=== PATIENT | male | born 1940 | race Caucasian/White ===

== ENCOUNTER 2017-01-05 09:00 | Observation (INO) | payer OTHER ==
--- NOTE | 2017-01-05 09:15 | CPEKG ---
Heart Rate: 63 RR Interval: 952 P-R Interval: 216 QRSD Interval: 148 QT Interval: 412 QTC Interval: 422 P [place]: 28 QRS [place]: -70 T Wave [place]: 21 EKG Severity - ABNORMAL ECG - EKG Impression: SINUS RHYTHM EKG Impression: RBBB AND LAFB EKG Impression: LEFT VENTRICULAR HYPERTROPHY Electronically Signed By: Brock Deshpande 05-Jan-2017 10:21:36
[2017-01-05] MEDS ORDERED: NS 500 ML IV ONE (09:16)
--- NOTE | 2017-01-05 09:16 | EDPHY ---
H & P Time Seen by Provider: 01/05/17 09:10 HPI/ROS: CHIEF COMPLAINT: Syncope HISTORY OF PRESENT ILLNESS: Patient is a 76-year-old man who comes to the emergency department after a syncopal event while exercising. He states that he has a remote history of infrequent atrial fibrillation and takes Xarelto for history of PE. This morning while he was doing Lat pull Downs he fainted and was unconscious for about 20 seconds according to witnesses. He denies chest pain or shortness breath. When paramedics arrived he was awake but had a heart rate of 38. On on paramedics EKG he appear to have a variable first-degree block. The patient states that he now feels back to normal. No focal weakness or deficits. No seizure-like activity. No recent illnesses. REVIEW OF SYSTEMS: Constitutional: denies: chills, fever, recent illness, recent injury EENTM: denies: blurred vision, double vision, nose congestion Respiratory: denies: cough, shortness of breath Cardiac: See HPI Gastrointestinal/Abdominal: denies: abdominal pain, diarrhea, nausea, vomiting, blood streaked stools Genitourinary: denies: dysuria, frequency, hematuria, pain Musculoskeletal: denies: joint pain, muscle pain Skin: denies: lesions, rash, jaundice, bruising Neurological: denies: headache, numbness, paresthesia, tingling, dizziness, weakness Hematologic/Lymphatic: denies: blood clots, easy bleeding, easy bruising Immunologic/allergic: denies: HIV/AIDS, transplant EXAM: GENERAL: Well-appearing, well-nourished and in no acute distress. HEAD: Atraumatic, normocephalic. EYES: Pupils equal round and reactive to light, extraocular movements intact, sclera anicteric, conjunctiva are normal. ENT: TMs normal, nares patent, oropharynx clear without exudates. Moist mucous membranes. NECK: Normal range of motion, supple without lymphadenopathy or JVD. LUNGS: Breath sounds clear to auscultation bilaterally and equal. No wheezes rales or rhonchi. HEART: Regular rate and rhythm without murmurs, rubs or gallops. ABDOMEN: Soft, nontender, normoactive bowel sounds. No guarding, no rebound. No masses appreciated. BACK: No CVA tenderness, no spinal tenderness, step-offs or deformities EXTREMITIES: Normal range of motion, no pitting or edema. No clubbing or cyanosis. NEUROLOGICAL: Cranial nerves II through XII grossly intact. Normal speech, normal gait. 5/5 strength, normal movement in all extremities, normal sensation PSYCH: Normal mood, normal affect. SKIN: Warm, dry, normal turgor, no visible rashes or lesions. Source: Patient Exam Limitations: No limitations - Medical/Surgical History Hx Asthma: No Hx Chronic Respiratory Disease: No Hx Diabetes: No Hx Cardiac Disease: No Hx Renal Disease: No Hx Cirrhosis: No Hx Alcoholism: No Hx HIV/AIDS: No Hx Splenectomy or Spleen Trauma: No Other PMH: HX: PE'S, HYPOTHYROID - Family History Significant Family History: No pertinent family hx - Social History Smoking Status: Never smoked Alcohol Use: Sober Drug Use: None Constitutional: Initial Vital Signs O2 Sat (%) 98 01/05/17 11:05 O2 (L/minute) 2 Allergies/Adverse Reactions: No Known Allergies Allergy (Verified 04/11/14 10:26) Home Medications: Medication Instructions Recorded Levothyroxine [Synthroid 75 mcg 75 mcg PO DAILY06 02/16/14 (*)] Rivaroxaban [Xarelto 10mg (*)] 20 mg PO HS 02/16/14 Herbals/Supplements -Info Only 1 ea PO DAILY 01/05/17 Medical Decision Making - Diagnostics EKG Interpretation: An EKG obtained and was read and documented in trace view. Please see trace view for full reading and report. Sinus rhythm with first-degree block and right bundle branch block. Imaging Results: Imaging Impressions Chest X-Ray 01/05/17 09:17 Impression: 1. Indeterminate age mild T7 compression. 2. Otherwise negative. ED Course/Re-evaluation: On the paramedics EKGs he does appear to have a first-degree block of variable duration. A ventricular rate in the 30s. The patient states he now feels completely fine. Blood pressure is been stable. 10:45 a.m. the patient is doing well. His heart rate is consistently in the 40s and 50s. He feels slightly foggy but not lightheaded. Will admit to medical service for monitoring and evaluation for pacemaker. 11:45 a.m. I discussed the case with Dr. Royce Torrez who will admit to the medical service. Differential Diagnosis: Partial list of the Differential diagnosis considered include but were not limited to; bradycardia, syncope, arrhythmia and although unlikely based on the history and physical exam, I also considered head injury, infection. - Data Points Laboratory Results: Laboratory Results 01/05/17 09:13 01/05/17 09:13 01/05/17 01/05/17 09:13 09:13 WBC 5.59 10^3/uL 10^3/uL (3.80-9.50) RBC 4.64 10^6/uL 10^6/uL (4.40-6.38) Hgb 15.6 g/dL g/dL (13.7-17.5) Hct 46.3 % % (40.0-51.0) MCV 99.8 fL fL (81.5-99.8) MCH 33.6 pg pg (27.9-34.1) MCHC 33.7 g/dL g/dL (32.4-36.7) RDW 14.4 % % (11.5-15.2) Plt Count 171 10^3/uL 10^3/uL (150-400) MPV 10.9 fL fL (8.7-11.7) Neut % (Auto) 49.1 % % (39.3-74.2) Lymph % (Auto) 35.1 % % (15.0-45.0) [place] % (Auto) 13.1 % H % (4.5-13.0) Eos % (Auto) 1.8 % % (0.6-7.6) Baso % (Auto) 0.5 % % (0.3-1.7) Nucleat RBC Rel Count 0.0 % % (0.0-0.2) Absolute Neuts (auto) 2.75 10^3/uL 10^3/uL (1.70-6.50) Absolute Lymphs (auto) 1.96 10^3/uL 10^3/uL (1.00-3.00) Absolute Monos (auto) 0.73 10^3/uL 10^3/uL (0.30-0.80) Absolute Eos (auto) 0.10 10^3/uL 10^3/uL (0.03-0.40) Absolute Basos (auto) 0.03 10^3/uL 10^3/uL (0.02-0.10) Absolute Nucleated RBC 0.00 10^3/uL 10^3/uL (0-0.01) Immature Gran % 0.4 % % (0.0-1.1) Immature Gran # 0.02 10^3/uL 10^3/uL (0.00-0.10) Sodium 143 mEq/L mEq/L (134-144) Potassium 4.3 mEq/L mEq/L (3.5-5.2) Chloride 105 mEq/L mEq/L (97-110) Carbon Dioxide 19 mEq/l L mEq/l (22-31) Anion Gap 19 mEq/L H mEq/L (8-16) BUN 20 mg/dL mg/dL (7-23) Creatinine 1.2 mg/dL mg/dL (0.7-1.3) Estimated GFR 59 Glucose 114 mg/dL H mg/dL (70-100) Calcium 9.7 mg/dL mg/dL (8.5-10.4) Troponin I 0.012 ng/mL ng/mL (0-0.034) TSH 5.410 uIU/mL H uIU/mL (0.465-4.680) Free T4 1.21 ng/dL ng/dL (0.59-2.19) Medications Given: Discontinued Medications Sodium Chloride (Ns) 500 mls @ 0 mls/hr IV ONCE ONE PRN Reason: As Directed Stop: 01/05/17 09:17 Last Admin: 01/05/17 09:16 Dose: 500 mls Departure - Departure Disposition: [facility] Inpatient Acute Clinical Impression: Bradycardia Syncope Qualifiers: Syncope type: unspecified Qualified Code(s): R55 - Syncope and collapse Condition: Fair
[2017-01-05 09:24] LABS: % IMMATURE GRANULYOCYTES 0.4 % (0.0-1.1); ABSOLUTE IMMATURE GRANULOCYTES 0.02 10^3/uL (0.00-0.10); ADD DIFF? NO; ADD MORPH? NO; ADD SCAN? NO; ATYPICAL LYMPHOCYTE FLAG 10 (0-99); FRAGMENT RBC FLAG 0 (0-99); HEMATOCRIT 46.3 % (40.0-51.0); HEMOGLOBIN 15.6 g/dL (13.7-17.5); LEFT SHIFT FLG 0 (0-99); LIPEMIA HEMOLYSIS FLAG 80 (0-99); MEAN CELL HEMOGLOBIN 33.6 pg (27.9-34.1); MEAN CELL HEMOGLOBIN CONCENTR. 33.7 g/dL (32.4-36.7); MEAN CELL VOLUME 99.8 fL (81.5-99.8); MEAN PLATELET VOLUME 10.9 fL (8.7-11.7); PLATELET CLUMPS FLAG 10 (0-99); PLATELET COUNT 171 10^3/uL (150-400); RED BLOOD CELL COUNT 4.64 10^6/uL (4.40-6.38); RED CELL DISTRIBUTION WIDTH 14.4 % (11.5-15.2)
[2017-01-05 09:31] LABS: ANION GAP 19 mEq/L (8-16); CALCIUM 9.7 mg/dL (8.5-10.4); CARBON DIOXIDE 19 mEq/l (22-31); CHLORIDE 105 mEq/L (97-110); CREATININE 1.2 mg/dL (0.7-1.3); GLOMERULAR FILTRATION RATE 59; GLUCOSE 114 mg/dL (70-100); POTASSIUM 4.3 mEq/L (3.5-5.2); SODIUM 143 mEq/L (134-144)
[2017-01-05 10:15] LABS: TROPONIN I 0.012 ng/mL (0-0.034)
[2017-01-05] MEDS ORDERED: HYDROmorphONE/DILAUDID 1 MG/ML SYR IVP PRN (13:06)
[2017-01-05] MEDS ORDERED: ZOLPIDEM TARTRATE 5 MG TAB PO PRN (13:06)
[2017-01-05] MEDS ORDERED: ONDANSETRON DISINTEGRATING 4 MG TAB PO PRN (13:06)
[2017-01-05] MEDS ORDERED: ACETAMINOPHEN 325 MG TAB PO PRN (13:06)
[2017-01-05] MEDS ORDERED: ONDANSETRON 4 MG/2 ML VIAL IVP PRN (13:06)
[2017-01-05] MEDS ORDERED: NS 1,000 ML IV SCH (13:15)
--- NOTE | 2017-01-05 13:37 | GHP ---
[f rep st] HISTORY AND PHYSICAL DATE OF ADMISSION: 01/05/2017 CHIEF COMPLAINT: Syncope. HPI: A 76-year-old male who presents to the emergency department via EMS because of a syncopal event while exercising. He had done [employer] for approximately 30 minutes, and then proceeded to begin weight-resistant work. He was doing pull-downs, and he stood up, and at that point had a full syncopal episode. He does not remember hitting the floor, and the next thing he remembers the EMS had arrived. There was no observed history by anyone at the event of any seizure activity, and he was not incontinent of urine and stool. By the patient's history he possibly has paroxysmal atrial fibrillation, though I cannot confirm that. 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 The NSVT was observed during an exercise tolerance test, and was nonsustained. He had a cardiac catheterization in 2009 which showed no significant flow-obstructing lesions. 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 According to witnesses he was only unconscious for 20 seconds, but the patient himself does not remember the event and only remembers ENT arriving. A friend with him here in the emergency department indicates that he was a little fuzzy in thinking when he arrived, and after having something to eat with sugar his mental status seemed to improve. There is no clear history that he has diabetes mellitus, and he has never required any form of diabetic care, although he does report he gets weak at times and notices that if he has something with sugar he feels improved. The gentleman does in fact exercise significantly, both aerobically and with weight-resistant work. 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 He has only today put the brace on his left knee and was exercising at about half intensity in his aerobic work. PAST MEDICAL HISTORY: He denies asthma, allergies, high blood pressure or diabetes. He has a history of hypothyroidism. 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 Medications: Reviewed on EMR. FAMILY HISTORY: He possibly has a history of coronary artery disease, as his father had a pacemaker. His mother has a positive history of breast cancer. SOCIAL HISTORY: The gentleman never smoked. He uses alcohol, approximately 1 glass of red wine, a day. Drugs, no recreational use. ALLERGIES: No significant allergies. REVIEW OF SYSTEMS: A 10-point review of systems is otherwise negative. Specifically the gentleman has been feeling well and there has been no recent fever, cough, shortness of breath. The current episode was not related to any episodes of chest pain. There is no recent orthopnea or PND. Reviewing his past history shows that he did have nonsustained ventricular tachycardia as noted above in 2012. His cardiac catheterization at that time was clear. He has also had a CT calcium score of 93. I spoke with Dr. Haro, his PCP, who concurs with these above findings. PHYSICAL EXAM: GENERAL: This is a pleasant, alert gentleman who appears in no distress. VITAL SIGNS: His vital signs initially were normal, showing normal blood pressure of 135/67. He had a heart rate of 57, and a sinus bradycardia, respirations 16, nonlabored, and a normal oxygen saturation. HEENT: Shows no scalp or facial trauma, the tongue and buccal mucosa are normal without signs of trauma. NECK: Supple, without meningismus. CHEST: Chest wall nontender to palpation, and again no signs of trauma. LUNGS: Clear to P and A without wheezing or rales. HEART: Singular S1 and singular S2, probable fixed split S2. No murmur or gallop is appreciated. Monitor rhythm shows only sinus rhythm , there was no ectopy noted. ABDOMEN: Nontender, benign. EXTREMITIES: He has a brace on his left knee, there are no signs of trauma on the extremities. NEUROLOGIC: He is an oriented x3 calm male. Cranial nerves 2-12 are intact to specific testing. His motor and sensory function are grossly intact. He reports some loss of sensation on the plantar surface of both feet, the Babinski 's are plantar. 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 LABORATORY DATA: CBC is normal. Chemistry panel is abnormal, showing an elevated anion gap at 19 with normal renal function, a glucose of 114, a slightly elevated TSH of 5.4 with a free T4, normal 1.21. His ECG shows a sinus rhythm at 63, has a TN interval of 0.21, evidence of a right bundle branch block and a left anterior fascicular block. It is also possible he has LVH by ECG criteria. A chest x-ray shows no active cardiopulmonary disease. The chest x-ray reviewed by myself on the PACS system and the x-ray imaging system in the electrocardiogram was read by myself on PACS. ASSESSMENT: 1. Acute syncope. Gentleman has a clear history of a full syncopal event, without signs of a seizure. He was not incontinent of urine and stool, and he has no prior history of seizure. Despite that he also does have a significant history of prior NSVT in 2011. In addition, electrocardiogram today shows a first degree block, LAFB, and an RBBB. This in and of itself, if this block extended, could easily give him a third degree heart block. In addition, he said he was feeling weak with a slightly altered mental status on admission, which cleared up with glucose, although hypoglycemia is not confirmed by lab testing here as he had a glucose of 114. Thus, there may be a number of factors here. The gentleman was exercising and not drinking water nor taking any nutrition earlier. He may in fact, using a combination of aerobic exercise and then weight-resistant work, and then having just stood up, he could have easily had a vasovagal episode resulting in brief syncope. Despite that conclusion, he had significant ECG findings and warrants monitoring. I have discussed the case with Cardiology, an echocardiogram will be ordered, and he will be admitted to the PCU in observation. 2. History of a pulmonary embolus and deep venous thrombosis in 2009. Additionally, he reports that he has a coagulopathy and is followed by Dr. Roni Rivas. We will continue his anticoagulation, but I contacted Dr. Rivas just to let him know. PLAN: The gentleman will be admitted to the PCU on telemetry, troponin will be ordered serially, and an echocardiogram performed. Cardiology has been consulted and we will see the gentleman. TIME: This admission required 50 minutes. Billing: This gentleman will be admitted onto observation status. /[id number]/MODL MTDD
[2017-01-05 15:10] LABS: TROPONIN I 0.036 ng/mL (0-0.034)
--- NOTE | 2017-01-05 18:04 | GCON ---
[f rep st] CONSULTATION ADMIT DIAGNOSIS: 1. Syncope. 2. Bradycardia. We were asked by Dr. Torrez, hospitalist, to evaluate the patient for possible cause of syncope. HISTORY OF PRESENT ILLNESS: The patient was in his usual state of health until this morning when he was at his gym working out. He had done his aerobic exercise and was working on weights, just fini shing up. He uses the cable weight machine and was pulling 100 pounds of weight. He suddenly faint ed with no pre-warning. When he came to, all that he remembers is that the learning operations specialist were standing over him. His shares that she was told that others there exercising at that time said that he was o ut about 30 seconds. He was then taken to the emergency room and admitted for observation. The onl y residual effect is he has noted that he is not thinking as clearly as he typically would. He has no shortness of breath, chest pain, dizziness, or lightheadedness. At time of my visit, he is feeli ng well. His is at bedside, conversing as usual. He has noted arrhythmias in the past. He hurley d a cardiac angiogram done in November of 2011, which showed mild nonobstructive coronary artery diseas e. He has had serial EBCT showing mild plaque by report. His last echo was done in July, showing normal EF, mild TR. He did have a stress echo done in November of 2011, showing an EF of 65 %, with basal inferior ischemia. He has a history of multiple pulmonary emboli and is treated with Xarelto and followed closely by Dr. Paul. He otherwise is healthy, exercises most days, and lead s a healthy life. PAST MEDICAL HISTORY: Mild coronary artery disease by EBCT scan. Arrhythmias of nonsustained wide- complex tachycardia and atrial fibrillation history. SOCIAL HISTORY: He is . He follows a healthy 2000-calorie diet. He exercises moderately do ing aerobic exercise, weights, and yoga daily. FAMILY HISTORY: Premature coronary artery disease. ALLERGIES: He has no known allergies. HOME MEDICATIONS: Herbal supplements 1 daily, Xarelto 20 mg at bedtime, Synthroid 75 mcg daily in t he morning. REVIEW OF SYSTEMS: A 10-point review of systems, other than as on the HPI, was negative. PHYSICAL EXAM: VITAL SIGNS: Blood pressure 123/84, heart rate 52, respiratory rate 14, oxygen satur ation 95%. HEART: Rate is regular. No murmurs, rubs, gallops. LUNGS: Clear to auscultation. No wheezes, rales, or rhonchi. ABDOMEN: Soft and nontender. EXTREMITIES: No edema, clubbing or cya nosis. SKIN: Warm and dry, with no visible lesions. NEUROLOGICAL: Normal speech, with normal gai t. PSYCH: Normal mood, with normal affect. EKG shows a sinus rhythm with right bundle branch block and left atrial fascicular block. Chest x-r ay on 01/05/2017 showed no adenopathy or mass lesions. No pleural effusion or pneumothorax. Mild T 7 compression abnormality. Otherwise negative. LABS: White count 5.59, hemoglobin 15.6, hematocrit 46.3, sodium 143, potassium 4.3, carbon dioxide 19, anion gap 19, BUN 20, creatinine 1.2. Glucose 114. Troponin 0.012 on admission. TSH 5.4, sec ond troponin 0.036. IMPRESSION AND PLAN: Syncope of unknown cause. His EKG does show bradycardia of a rate of 52. He has a history of past arrhythmias, including nonsustained VT and a history of atrial fibrillation. This was discussed with Dr. Lezama. It is felt that he may be a good candidate for the [place] monit or for continuous monitoring. This may be the cause of his syncopal episode. Additionally, he is t o get an echocardiogram. He feels well at this time. He remains on telemetry. Further recommendat ions after the echocardiogram and evaluation of telemetry overnight. At this time, he currently is stable. /[id number]/MODL
[2017-01-05] MEDS ORDERED: RIVAROXABAN 10 MG TAB PO SCH (21:00)
[2017-01-06 05:30] LABS: % IMMATURE GRANULYOCYTES 0.4 % (0.0-1.1); ABSOLUTE IMMATURE GRANULOCYTES 0.02 10^3/uL (0.00-0.10); ADD DIFF? NO; ADD MORPH? NO; ADD SCAN? NO; ATYPICAL LYMPHOCYTE FLAG 0 (0-99); FRAGMENT RBC FLAG 0 (0-99); HEMATOCRIT 40.5 % (40.0-51.0); HEMOGLOBIN 13.8 g/dL (13.7-17.5); LEFT SHIFT FLG 0 (0-99); LIPEMIA HEMOLYSIS FLAG 90 (0-99); MEAN CELL HEMOGLOBIN 33.3 pg (27.9-34.1); MEAN CELL HEMOGLOBIN CONCENTR. 34.1 g/dL (32.4-36.7); MEAN CELL VOLUME 97.8 fL (81.5-99.8); MEAN PLATELET VOLUME 11.6 fL (8.7-11.7); PLATELET CLUMPS FLAG 0 (0-99); PLATELET COUNT 148 10^3/uL (150-400); RED BLOOD CELL COUNT 4.14 10^6/uL (4.40-6.38); RED CELL DISTRIBUTION WIDTH 14.4 % (11.5-15.2)
[2017-01-06] MEDS ORDERED: LEVOTHYROXINE 75 MCG TAB PO SCH (06:00)
[2017-01-06 06:24] LABS: ALANINE AMINOTRANSFERASE 34 IU/L (21-72); ALBUMIN 3.3 g/dL (3.5-5.0); ALKALINE PHOSPHATASE 63 IU/L (38-126); ANION GAP 6 mEq/L (8-16); ASPARTATE AMINOTRANSFERASE 31 IU/L (17-59); BILIRUBIN,TOTAL 0.4 mg/dL (0.1-1.4); CALCIUM 8.9 mg/dL (8.5-10.4); CARBON DIOXIDE 23 mEq/l (22-31); CHLORIDE 109 mEq/L (97-110); CREATININE 0.9 mg/dL (0.7-1.3); GLOMERULAR FILTRATION RATE > 60; GLUCOSE 86 mg/dL (70-100); POTASSIUM 4.2 mEq/L (3.5-5.2); SODIUM 138 mEq/L (134-144); TOTAL PROTEIN 5.8 g/dL (6.3-8.2)
[2017-01-06 06:28] LABS: TROPONIN I 0.027 ng/mL (0-0.034)
[2017-01-06 07:24] VITALS: PULSE 54; RESP 9; TEMP 98
--- NOTE | 2017-01-06 08:43 | CPEKG ---
Heart Rate: 47 RR Interval: 1277 P-R Interval: 204 QRSD Interval: 150 QT Interval: 472 QTC Interval: 418 P [place]: 21 QRS [place]: -67 T Wave [place]: -6 EKG Severity - ABNORMAL ECG - EKG Impression: SINUS BRADYCARDIA EKG Impression: RBBB AND LAFB EKG Impression: LEFT VENTRICULAR HYPERTROPHY Electronically Signed By: Guanakito Fabian 07-Jan-2017 12:35:42
--- NOTE | 2017-01-06 09:08 | ECHO ---
[id number] + + [address] : : [place] [address] : : [phone] + Adult Echocardiographic Report + --------+ :Name: JUANPABLO LUX SStudy Date: 01/06/2017 07:40 AM : : Hospital Admission Number: [id number] Locat ion: 212: :: 1940 Gender: Male Height: 73 in : :Age: 76 yrs Race: WH Weight: 197 l b : :Reason For Study: Syncopy without chest pain : : BSA: 2.1 mete rs2 : + --------+ MMode/2D Measurements \T\ Calculations IVSd: 1.3 cm LVIDd: 5.6 cm FS: 39.2 % Ao root diam: LVPWd: 0.89 cm LVIDs: 3.4 cm EDV(Teich): 3.9 cm 153.1 ml LA dimension: ESV(Teich): 3.8 cm 47.5 ml EF(Teich): 69.0 % LVLd ap4: 8.6 cm SV(MOD-sp4): EDV(MOD-sp4): 90.0 ml 127.0 ml LVLs ap4: 7.1 cm ESV(MOD-sp4): 37.0 ml EF(MOD-sp4): 70.9 % Normal Measurement Values: + + :LVIDd (3.5-5.7cm) IVSd (0.6-1.1cm) LVPWd (0.6-1.1cm) Aortic Root (2.0-3.7cm)Left Atrium (1.5-4.0cm): :LV Vol(d) (76-115ml) LV Vol(s) (29-48ml) [place]jec Fraction (50-65%)PV Armando (0.6- 1.2m/s) TV Armando (0.4-1.0m/s) : :MV E Armando (0.8-1.0m/s)MV A Armando (0.3-1.0m/s)LVOT Armando (0.7-1.2m/s) Asc Ao Armando ( 0.9-1.8m/s) : + + Doppler Measurements \T\ Calculations MV E max armando: 52.3 cm/sec Ao V2 max: 127.6 cm/sec MV A max armando: 62.7 cm/sec Ao max P.5 mmHg MV E/A: 0.83 Left Ventricle The left ventricle is normal in size and function. There is normal left ventricular wall thickness. Left ventricular systolic function is normal. Ejection Fraction = 65-70%. No regional wall motion abnormalities noted. Right Ventricle The right ventricle is normal in size and function. Atria The left atrium is mildly dilated. Right atrial size is normal. The interatrial septum is intact with no evidence for an atrial septal defect. Mitral Valve The mitral valve is normal in structure and function. There is no evidence of mitral valve prolapse. There is no mitral valve stenosis. There is mild mitral regurgitation. Tricuspid Valve Normal tricuspid valve. There is trace tricuspid regurgitation. Aortic Valve The aortic valve is trileaflet. The aortic valve opens well. There is no aortic stenosis. Trace aortic regurgitation. Pulmonic Valve The pulmonic valve is normal in structure and function. Trace pulmonic valvular regurgitation. Great Vessels The aortic root is normal size. Pericardium/Pleural There is no pericardial effusion. Conclusion A complete two-dimensional transthoracic echocardiogram was performed (2D, M-mode, Doppler and color flow Doppler). The left ventricle is normal in size and function. Left ventricular systolic function is normal. Ejection Fraction = 65-70%. The left atrium is mildly dilated. There is mild mitral regurgitation. There is trace tricuspid regurgitation. Trace aortic regurgitation. Trace pulmonic valvular regurgitation. Final Reading Physician: Cheko Castorena, Emiliaronicnelly signed on 01/06/2017 09:06 AM Ordering Physician: Kan Torrez Performed By: Olga Bear, CRYSTALCS
--- NOTE | 2017-01-06 09:50 | SOAPPROG ---
SOAP Progress Note Assessment/Plan: Assessment: 1. Syncope. Query orthostatic positional syncope versus dysrhythmia 2. Nonobstructive coronary disease by AV CT. 3. History of nonsustained VT. 4. History of paroxysmal atrial fibrillation\ 5. History of bradycardia with bifascicular block 6. Elevation in troponin Impression: Clinical history concerning for orthostatic syncope based on symptoms and activity at the time of event. However, patient has had nonsustained VT, paroxysmal atrial fibrillation, in the setting of known coronary artery disease and more malignant dysrhythmia is considered. Patient did have a mild slight transient rise in troponins without clinical symptoms. EKG did not show injury pattern. In light of this would recommend LINQ implantation today prior to discharge. Echocardiogram shows normal LV function without valvular heart disease. Will plan for outpatient nuclear stress test for complete risk stratification. Plan: LINQ monitor Outpatient nuclear stress test. With abnormal baseline EKG and elevation in troponins. 01/06/17 09:51 01/06/17 09:52 Subjective: Feeling well without further events. Cardiac review of systems is negative for chest pain, shortness of breath, PND , orthopnea, palpitations, syncope, near syncope, edema. Objective: Telemetry shows sinus bradycardia without dysrhythmia. Vital Signs Temp Pulse Resp BP Pulse Ox 36.7 C 54 L 9 L 139/71 H 97 01/06/17 07:24 01/06/17 07:24 01/06/17 07:24 01/06/17 07:24 01/06/17 07:24 Laboratory Results 01/06/17 04:18 01/06/17 04:18 01/05/17 01/06/17 01/07/17 05:59 05:59 05:59 Intake Total 3040 Balance 3040 Medications Generic Name Dose Route Start Last Admin Trade Name Freq PRN Reason Stop Dose Admin Levothyroxine Sodium 75 mcg 01/06/17 06:00 01/06/17 04:43 Synthroid PO 07/05/17 05:59 75 mcg DAILY06 CHRIS Rivaroxaban 20 mg 01/05/17 21:00 01/05/17 20:35 Xarelto PO 07/04/17 20:59 20 mg HS CHRIS Laboratory Tests 01/05/17 01/05/17 01/05/17 09:13 14:30 19:00 Troponin I 0.012 0.036 H 0.032 TSH 5.410 H 01/06/17 04:18 Troponin I 0.027 TSH Physical Exam - Physical Exam General Appearance: alert EENT: PERRL/EOMI, normal ENT inspection Neck: non-tender, full range of motion Respiratory: chest non-tender, lungs clear Cardiac/Chest: normal peripheral pulses, regular rate, rhythm, bradycardia, No edema, No gallop, No JVD Peripheral Pulses: 1+: carotid (R), carotid (L) Abdomen: normal bowel sounds, non-tender, soft, No organomegaly Back: Normal inspection Skin: normal color, warm/dry, No cyanosis Lymphatic: no adenopathy, No axilla node tender (R) Extremities: normal range of motion, non-tender, normal inspection Neuro/Psych: no motor/sensory deficits, alert, normal mood/affect, oriented x 3 ICD10 Worksheet Patient Problems: Problems Problem Status Onset Bradycardia Acute Syncope Acute History of Present Illness Initial Vital Signs: Initial Vital Signs O2 Sat (%) 98 01/05/17 11:05 O2 Delivery Mode Room Air Allergies/Adverse Reactions: No Known Allergies Allergy (Verified 04/11/14 10:26) Home Medications: Medication Instructions Recorded Levothyroxine [Synthroid 75 mcg 75 mcg PO DAILY06 02/16/14 (*)] Rivaroxaban [Xarelto 10mg (*)] 20 mg PO HS 02/16/14 Herbals/Supplements -Info Only 1 ea PO DAILY 01/05/17 Review of Systems - Review of Systems Constitutional: no symptoms reported EENTM: no symptoms reported Respiratory: no symptoms reported Cardiac: no symptoms reported Gastrointestinal/Abdominal: no symptoms reported Genitourinary: no symptoms Musculoskelatal: no symptoms Skin: no symptoms Neurological: no symptoms Hematologic/Lymphatic: no symptoms reported Immunologic/allergic: no symptoms reported All Other Systems: Reviewed and Negative Past Medical History - Personal History Current Tetanus/Diphtheria Vaccine: Yes Current Tetanus Diphtheria and Acellular Pertussis (TDAP): Yes - Medical/Surgical History Hx Asthma: No Hx Chronic Respiratory Disease: No Hx Cardiac Disease: Yes Hx Diabetes: No Hx Renal Disease: No Hx Alcoholism: No Hx Cirrhosis: No Hx HIV/AIDS: No Hx Splenectomy or Spleen Trauma: No Other PMH: HX: PE'S, HYPOTHYROID, coronary artery disease, history of nonsustained ventricular tachycardia, history of paroxysmal atrial fibrillation - Family History Significant Family History: No pertinent family hx - Social History Smoking Status: Never smoked
[2017-01-06] MEDS ORDERED: LIDOCAINE 1% 300 MG/30 ML SDV SC ONE (11:15)
--- NOTE | 2017-01-06 13:56 | GDS ---
[f rep st] DISCHARGE SUMMARY DIAGNOSES: 1. Syncope. 2. History of coronary artery disease. 3. History of nonsustained ventricular tachycardia. 4. History of possible paroxysmal atrial fibrillation. HOSPITAL COURSE: This is a 76-year-old man who presented with syncope while exercising. ECG showed right bundle branch block and left anterior fascicular block. He was monitored on telemetry with n o significant arrhythmias. An echocardiogram showed a normal ejection fraction. He had a mild parsons sient elevation of his troponin to an indeterminate level. He does have a history of nonobstructive coronary artery disease. Because of this, link monitor was placed. He has seen by Cardiology. Th ey plan an outpatient nuclear stress test. He will follow up with Cardiology as an outpatient. DISPOSITION: He was discharged in stable condition. /[id number]/MODL
[2017-01-06 14:04] VITALS: BP 124/69; O2SAT 92
--- NOTE | 2017-01-06 17:43 | PDCTREPORT ---
Cardiothoracic Procedure Rpt Cardiothoracic Procedure Report: Procedure: Insertion of a LINQ recorder. Indications: Syncope with bifascicular block, history of atrial fibrillation, history of nonsustained VT, history of coronary disease. After obtaining informed consent patient was brought to the [facility]. The emilia pectoral region was sterilely prepped and draped on the left. Using a stab wound a link pocket was created. The LINQ was inserted under the skin. Staple was used to close the skin. Pressure dressings applied the patient is taken back to his room for continued care. Conclusions: Successful implantation of a LINQ loop recorder. Patient Problems: Problems Problem Status Onset Bradycardia Acute Syncope Acute
== END 2017-01-06 14:41 | disposition home or self-care (01) ==
LOC: EDUNIT# → F2W 12:38
PROVIDERS: ADMIT Internal Medicine Pulmonary Disease; ATTEND Student in an Organized Health Care Education/Training Program
PROC: 0JH60PZ Insertion of Cardiac Rhythm Related Device into Chest Subcutaneous Tissue and Fascia, Open Approach (ICD-10-PCS; principal; 2017-01-05)
DX: R55 Syncope and collapse (principal); I25.10 Atherosclerotic heart disease of native coronary artery without angina pectoris; I48.0 Paroxysmal atrial fibrillation; Z86.711 Personal history of pulmonary embolism; Z79.01 Long term (current) use of anticoagulants; Z94.84 Stem cells transplant status
CPT/HCPCS: 33282; 71020; 92523; 93005; 93306; 96360; 99285; C1764; G0378; G9165; G9166; G9167

== ENCOUNTER → 2017-02-23 | Outpatient (CLI) | payer OTHER | LOC: BHFA 14:00 | PROVIDERS: ATTEND Internal Medicine Interventional Cardiology | DX: I48.91 Unspecified atrial fibrillation (principal); R55 Syncope and collapse | CPT/HCPCS: 78452; 93017; A9500 ==

== ENCOUNTER 2017-08-11 11:35 | Observation (INO) | payer OTHER ==
[2017-08-11] MEDS ORDERED: BACITRACIN IRRIGATION/NS 50,000 UNITS/1,000 ML BTL IRR ONE (11:37)
[2017-08-11] MEDS ORDERED: diphenhydrAMINE 25 MG CAP PO ONE (11:37)
[2017-08-11] MEDS ORDERED: NS 1,000 ML IV ONE (11:37)
[2017-08-11] MEDS ORDERED: ceFAZolin 2 GM/SWFI 2 GM/20 ML SYR IVP ONE (11:37)
[2017-08-11] MEDS ORDERED: DIAZEPAM 5 MG TAB PO ONE (11:37)
--- NOTE | 2017-08-11 12:03 | CPEKG ---
Heart Rate: 52 RR Interval: 1154 P-R Interval: 192 QRSD Interval: 148 QT Interval: 468 QTC Interval: 436 P [place]: 40 QRS [place]: -70 T Wave [place]: -10 EKG Severity - ABNORMAL ECG - EKG Impression: SINUS RHYTHM EKG Impression: RBBB AND LAFB EKG Impression: LEFT VENTRICULAR HYPERTROPHY Electronically Signed By: Cheko Castorena 11-Aug-2017 14:51:27
[2017-08-11 12:15] LABS: PLATELET COUNT 178 10^3/uL (150-400)
[2017-08-11 12:29] LABS: INR 1.08 (0.83-1.16); PROTIME(PATIENT) 14.2 SEC (12.0-15.0)
--- NOTE | 2017-08-11 12:44 | PDPROPOC ---
Sedation Plan of Care Sedation Plan of Care: vital signs stable, mental status noted, patient educated of risks, benefits, alternatives, patient can tolerate sedation ASA Classification: ASA 1 Planned drugs: fentanyl, midazolam Mallampati Score: Class 1 Mallampati Reference Image: Patient passed 3-3-2 rule?: Yes
--- NOTE | 2017-08-11 12:44 | PDHPUP ---
History & Physical Update H&P update statement: This history and physical update is based on an assessment of the patient which was completed after admission or registration (within 24 hours), but prior to the surgery/procedure. H&P update: H&P reviewed & patient examined, no change in patient's condition since H&P completed
[2017-08-11] MEDS ORDERED: IOPAMIDOL (ISOVUE-300) 100 ML BTL ONE (12:57)
[2017-08-11] MEDS ORDERED: LIDOCAINE 1% 300 MG/30 ML SDV ONE (12:57)
[2017-08-11] MEDS ORDERED: BUPIVACAINE 0.5% 30 ML SDV ONE (12:58)
[2017-08-11] MEDS ORDERED: MIDAZOLAM 2 MG/2 ML VIAL ONE ×4 (12:58→14:49)
[2017-08-11] MEDS ORDERED: fentaNYL 100 MCG/2 ML INJ ONE ×2 (12:58→14:49)
--- NOTE | 2017-08-11 15:22 | CPEKG ---
Heart Rate: 50 RR Interval: 1200 P-R Interval: 216 QRSD Interval: 148 QT Interval: 464 QTC Interval: 424 QRS [place]: -69 T Wave [place]: -13 EKG Severity - ABNORMAL ECG - EKG Impression: ATRIAL-PACED RHYTHM EKG Impression: RBBB AND LAFB EKG Impression: LEFT VENTRICULAR HYPERTROPHY Electronically Signed By: Cheko Castorena 12-Aug-2017 16:06:45
--- NOTE | 2017-08-12 01:39 | CPIP ---
[f rep st] INVASIVE CARDIAC PROCEDURE DATE OF PROCEDURE: 08/11/2017 INDICATIONS: The patient is a 77 years old. He has a history of syncope. A LINQ was implanted in t he past, which indicated transient complete heart block with a 9-second pause. PROCEDURE: 1. Implantation of a dual-chamber pacemaker. 2. Explantation of a Medtronic LINQ. TECHNIQUE: Following informed consent and in the postabsorptive state, the [facility]. The left chest was prepped and draped in the usual sterile fas hion. Immediately prior to the procedure, antibiotics were administered. 2% lidocaine was infiltrat ed into the skin below the left clavicle and overlying the existing LINQ monitor. Using a #10 blade, a 3 cm incision was made beneath the left clavicle. The pacemaker pocket was fashioned using blunt and sharp dissection and electrocautery was used for hemostasis. Using 2 separate sticks in the mirna fied Seldinger technique, access was gained to the axillary vein on 2 separate occasions, and 2 indiv idual 0.035 J-wires were positioned. Using the first wire, a 6-English SafeSheath was placed. This allowed us to pass the right ventricula r lead into the right ventricular apex, screw the lead in place, and tear the sheath away. The lead was tested with adequate capture and sensing and secured to the pacemaker pocket floor using 0 Ethibo nd. Using the remaining J-wire, a second 6-English sheath was placed. This allowed us to place the a trial lead in the right atrial appendage, screw the lead into place and tear-away the sheath. The le ad was then secured to the pacemaker pocket floor. Both leads were tested with adequate capture and sensing. The pocket was then irrigated with antibiotic-containing solution. The device was brought to the [facility]. Both leads were identified by serial number and affixed to the header according to network control supervisor guidelines. The device was then placed in the pocket. The pocket was then closed in 3 layers, initi ally using 2 layers of interrupted suture with 2-0 and 3-0 Vicryl, and finally running Stratafix for the skin. Steri-Strips and a dry dressing were applied. At this point, a 1 cm incision was made overlying the previously placed LINQ monitor. This monitor w as then explanted from the pocket. The pocket was explanted from the body. The existing pocket was then irrigated with antibiotic-containing solution and closed with 2 individual nuria. COMPLICATIONS: None DEVICE INFORMATION: The pacemaker is a Biotronik Edora 8 DR-T, model number [id number], serial number [id number]. Ventricular lead: Biotronik Solia S60, [id number], serial number [id number]. Atrial lead: Biotronik [place] a S53, [id number], serial number [id number]. Capture in the ventricle: 0.4 V at 0.4 msec with sensed R-waves 12.4 mV with lead impedance 755 ohms . In the atrium, capture 0.9 V at 0.4 msec with lead impedance of 544 ohms and sensed P waves of 3.4 mV. DISPOSITION: Patient will be recovered in the CVC and admitted overnight. He will be discharged ujliana in the morning. /[id number]/MODL
[2017-08-12] MEDS ORDERED: ACETAMINOPHEN 325 MG TAB PO PRN (02:35)
[2017-08-12 04:50] VITALS: TEMP 97.8
[2017-08-12] MEDS ORDERED: LEVOTHYROXINE 75 MCG TAB PO SCH (06:00)
[2017-08-12 10:10] VITALS: BP 115/92; PULSE 68; RESP 14; O2SAT 94
--- NOTE | 2017-08-12 10:17 | CPEKG ---
Heart Rate: 61 RR Interval: 984 P-R Interval: 212 QRSD Interval: 148 QT Interval: 420 QTC Interval: 423 P [place]: 34 QRS [place]: -78 T Wave [place]: 3 EKG Severity - ABNORMAL ECG - EKG Impression: SINUS RHYTHM EKG Impression: RBBB AND LAFB EKG Impression: LEFT VENTRICULAR HYPERTROPHY Electronically Signed By: Cheko Castorena 12-Aug-2017 16:06:18
--- NOTE | 2017-08-12 11:12 | GDS ---
[f rep st] DISCHARGE SUMMARY DISCHARGE DIAGNOSES: 1. Complete heart block, status post dual-chamber Biotronik pacemaker. 2. History of paroxysmal atrial fibrillation, on Xarelto. 3. Nonobstructive coronary artery disease. HOSPITAL COURSE: The patient is a 77-year-old male with a history of paroxysmal atrial fibrillation and nonobstructive coronary disease. He had an episode of syncope and therefore, had a LinQ placed. He was found to have asystole and complete heart block lasting 9 seconds at nighttime. Due to his a rrhythmia and history of syncope, the decision was made to proceed with pacemaker placement. He had a Biotronik dual-chamber pacemaker placed by Dr. Terry Montano on August 11, 2017. The procedure was unc omplicated. The following day, the patient denied any significant discomfort over his pacer pocket. He was monitored on telemetry and remained in normal sinus rhythm with intermittent pacing and rare PVCs. His EKG the day of discharge showed normal sinus rhythm at a rate of 61 with a first-degree AV block, right bundle branch block, and left anterior fascicular block. His device was interrogated t he day of discharge and was working properly. His chest x-ray was negative for pneumothorax. PHYSICAL EXAMINATION: GENERAL: Patient appears in no acute distress. VITALS: Blood pressure 115/9 2, heart rate 68, oxygen saturation of 94% on room air, afebrile. LUNGS: Clear to auscultation. No wheezes, rhonchi, or crackles auscultated. CARDIAC: Regular rate and rhythm without any significan t murmurs, rubs, or gallops appreciated. CHEST WALL: His pacer site is clean, intact without any ev idence of infection or hematoma. His LinQ was removed as well and that site is clean, intact without any evidence of infection. DISCHARGE MEDICATIONS: He will resume his normal medical regimen. He will continue Synthroid 75 mcg daily, Xarelto 20 mg at bedtime, herbal supplement daily, vitamin D3 daily, vitamin C daily, Tylenol p.r.n. for pain, testosterone cream daily. PLAN: The patient is currently stable and ready for discharge home. He has been given pacer precaut ions. He will follow up on August 17 for a pacer interrogation and wound check. He will then foll ow up with Dr. Terry Montano on August 18. /[id number]/MODL
--- NOTE | 2017-08-12 15:25 | ASDISCHSUM ---
Discharge Information Plan Status:Home with No Needs Medically Cleared to Leave:08/11/2017 Discharge Date:08/12/2017 11:10 AM CM D/C Disposition: ADT D/C Disposition:Home, Routine, Self-Care Projected Discharge Date:08/12/2017 12:00 AM Transportation at D/C: Discharge Delay Reason: Follow-Up Date:08/12/2017 12:00 AM Discharge Slot: Final Diagnosis: Placement Information Patient Contact Information Contact Name:DIAMOND Relationship:Friend Address:[address] Work Phone: City:[place] Alternate Phone: [facility]/Zip Code:[place] [address] Email: Financial Information Financial Class:MC Primary Plan Desc:MEDICARE OUTPATIENT Primary Plan Number:[id number] Secondary Plan Desc:HUMANA Secondary Plan Number:[id number] Assessment Information Intervention Information
== END 2017-08-12 11:10 | disposition home or self-care (01) ==
LOC: FCATH 11:35 → F2W 15:13
PROVIDERS: ADMIT Internal Medicine Cardiovascular Disease; ATTEND Internal Medicine Cardiovascular Disease
PROC: 02H63JZ Insertion of Pacemaker Lead into Right Atrium, Percutaneous Approach (ICD-10-PCS; principal; 2017-08-11)
PROC: 02HK3JZ Insertion of Pacemaker Lead into Right Ventricle, Percutaneous Approach (ICD-10-PCS; principal; 2017-08-11)
PROC: 0JPT02Z Removal of Monitoring Device from Trunk Subcutaneous Tissue and Fascia, Open Approach (ICD-10-PCS; principal; 2017-08-11)
PROC: 0JH604Z Insertion of Pacemaker, Single Chamber into Chest Subcutaneous Tissue and Fascia, Open Approach (ICD-10-PCS; principal; 2017-08-11)
DX: I44.2 Atrioventricular block, complete (principal); I48.0 Paroxysmal atrial fibrillation; I25.10 Atherosclerotic heart disease of native coronary artery without angina pectoris; Z79.01 Long term (current) use of anticoagulants
CPT/HCPCS: 33208; 33284; 71045; 71046; 93005; C1785; C1898; J0690; J2250; J3010; Q9967

== ENCOUNTER 2017-10-20 10:04 | Observation (INO) | payer OTHER ==
[~2017-10-20 10:04] MED LIST: BUPIVACAINE IU ONE; EPINEPHRINE IU ONE; ROPIVACAINE 0.2% 80 MG, EPINEPHrine 0.2 MG in SYRINGE 0 ML IU ONE; TRANEXAMIC ACID 3,000 MG in NS (SYRINGE) 50 ML IRR ONE; TRANEXAMIC ACID 3,000 MG/50 ML BAG IRR ONE
[2017-10-20] MEDS ORDERED: FAMOTIDINE 20 MG TAB PO ONE (10:31)
[2017-10-20] MEDS ORDERED: ceFAZolin 2 GM/SWFI 2 GM/20 ML SYR IVP ONE (10:31)
[2017-10-20] MEDS ORDERED: ACETAMINOPHEN 325 MG TAB PO ONE (10:31)
[2017-10-20] MEDS ORDERED: LR 1,000 ML IV ONE (10:31)
[2017-10-20] MEDS ORDERED: DEXAMETHASONE 4 MG/ML VIAL IVP ONE (10:31)
[2017-10-20] MEDS ORDERED: LIDOCAINE 1% 2 ML INJ ID PRN (10:31)
[2017-10-20] MEDS ORDERED: MIDAZOLAM 2 MG/2 ML VIAL IVP ONE (11:12)
--- NOTE | 2017-10-20 11:12 | PDANEPAE ---
ANE History of Present Illness L TKA ANE Past Medical History - Cardiovascular History Hx Hypertension: No Hx Arrhythmias: Yes Cardiovascular History Comment: Afib, 3rd degree heart block,self limiting VT. bilat DVT and Biat PE'S @ 5 yrs ago - Pulmonary History Hx COPD: No Hx Asthma/Reactive Airway Disease: No Hx Recent Upper Respiratory Infection: Yes Hx Oxygen in Use at Home: Yes O2 in Use at Home (L/minute): 2.5 L Hx Sleep Apnea: Yes Sleep Apnea Screening Result - Last Documented: Positive Pulmonary History Comment: YULIA uses CPAP with 02 - Neurologic History Hx Cerebrovascular Accident: No Hx Seizures: No Hx Dementia: No - Endocrine History Hx Diabetes: No - Renal History Hx Renal Disorders: No - Liver History Hx Hepatic Disorders: No - Neurological & Psychiatric Hx Hx Neurological and Psychiatric Disorders: Yes Neurological / Psychiatric History Comment: 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 - Cancer History Hx Cancer: Yes Cancer History Comment: BASAL CELL REMOVED FROM FACE - Congenital Disorder History Hx Congenital Disorders: No - GI History Hx Gastrointestinal Disorders: Yes Gastrointestinal History Comment: OCCASIONAL REFLUX - Other Health History Other Health History: LEFT FOOT DRY SKIN. MACULAR DEGENERATION. BRUISES EASILY - Chronic Pain History Chronic Pain: No - Surgical History Prior Surgeries: pacemaker ANE Review of Systems Review of systems is: negative Review of Systems: - Exercise capacity METS (RN): 4 METS - Pacemaker Pacemaker Type: Permanent Pacer/Defib Pacemaker Doctor Of Pharmacy: [employer] Pacemaker Model: [id number] Pacemaker Mode: DDD Date Pacemaker Last Checked: 09/15/2017 ANE Patient History - Allergies Allergies/Adverse Reactions: No Known Allergies Allergy (Verified 04/11/14 10:26) - Home Medications Home medications: home medication list seen and reviewed Home Medications: Levothyroxine [Synthroid 75 mcg (*)] 75 mcg PO DAILY06 02/16/14 [Last Taken ] Rivaroxaban [Xarelto 10mg (*)] 20 mg PO HS 02/16/14 [Last Taken 10/15/17] Herbals/Supplements -Info Only 1 ea PO DAILY 01/05/17 [Last Taken 10/06/17] Testosterone Cream 1 dereje TP DAILY 07/25/17 [Last Taken 10/06/17] Ascorbic Acid [Vitamin C 500 mg (*)] 1,000 mg PO DAILY 08/11/17 [Last Taken ] Cholecalciferol Vit D3 [Vitamin D3 (*)] 5,000 units PO DAILY 08/11/17 [Last Taken 10/06/17] - NPO status NPO Since - Liquids (Date): 10/20/17 NPO Since - Liquids (Time): 09:00 NPO Since - Solids (Date): 10/19/17 NPO Since - Solids (Time): 21:00 - Anes Hx Anes Hx: no prior problems - Smoking Hx Smoking Status: Never smoked - Family Anes Hx Family Anes Hx: none Family Hx Anesthesia Complications: none ANE Labs/Vital Signs - Vital Signs Blood Pressure: 120/73 Heart Rate: 50 Respiratory Rate: 14 O2 Sat (%): 93 Height: 185.42 cm Weight: 88.451 kg ANE Physical Exam - Airway Neck exam: FROM Mallampati Score: Class 1 Mouth exam: normal dental/mouth exam - Pulmonary Pulmonary: no respiratory distress - Cardiovascular Cardiovascular: irregularly irregular ANE Anesthesia Plan Anesthesia Plan: spinal (spinal MAC) Regional Anesthesia: single shot NB (AC), adductor canal FNB Total IV Anesthesia: Yes
[2017-10-20] MEDS ORDERED: LIDOCAINE 2% 100 MG/5 ML SYR ONE (12:18)
[2017-10-20] MEDS ORDERED: PROPOFOL/EMULSION 500 MG/50 ML BOTTLE IV ONE (12:18)
[2017-10-20] MEDS ORDERED: ONDANSETRON 4 MG/2 ML VIAL IVP PRN (13:43)
[2017-10-20] MEDS ORDERED: LACTULOSE 20 GM/30 ML UDCUP PO PRN (13:43)
[2017-10-20] MEDS ORDERED: BISACODYL 10 MG SUPP PR PRN (13:43)
[2017-10-20] MEDS ORDERED: oxyCODONE IR 5 MG TAB PO PRN (13:43)
[2017-10-20] MEDS ORDERED: MAGNESIUM HYDROXIDE 30 ML UDCUP PO PRN (13:43)
[2017-10-20] MEDS ORDERED: PROMETHAZINE HCL 25 MG SUPPR PR PRN (13:43)
[2017-10-20] MEDS ORDERED: POLYETHYLENE GLYCOL 3350 17 GM PKT PO PRN (13:43)
[2017-10-20] MEDS ORDERED: CYCLOBENZAPRINE 10 MG TAB PO PRN (13:43)
[2017-10-20] MEDS ORDERED: METOCLOPRAMIDE 10 MG/2 ML VIAL IVP PRN (13:43)
[2017-10-20] MEDS ORDERED: ONDANSETRON DISINTEGRATING 4 MG TAB PO PRN (13:43)
[2017-10-20] MEDS ORDERED: TEMAZEPAM 15 MG CAP PO PRN (13:43)
[2017-10-20] MEDS ORDERED: DIPHENOXYLATE/ATROPINE LOMOTIL 1 TAB PO PRN (13:43)
[2017-10-20] MEDS ORDERED: diphenhydrAMINE 25 MG CAP PO PRN (13:43)
[2017-10-20] MEDS ORDERED: PROMETHAZINE HCL 25 MG/ML INJ IVP PRN (13:43)
--- NOTE | 2017-10-20 13:43 | POSTOPPROG ---
Post Op Note Date of Operation: 10/20/17 Surgeon: Rk Ho Photo Engraver: nicole ho Anesthesiologist: dr. salvador Anesthesia: Spinal, Other (Specify) (adductor canal block) Pre-op Diagnosis: left knee OA Post-op Diagnosis: same Indication: left knee pain Procedure: L TKA Findings: severe knee OA Inf/Abcess present in the surg proc area at time of surgery?: No EBL: 50-100
[2017-10-20] MEDS ORDERED: LR 1,000 ML IV SCH (14:00)
[2017-10-20] MEDS ORDERED: ceFAZolin 2 GM/DEXTROSE 100 ML IV SCH (14:00)
[2017-10-20] MEDS ORDERED: HYDROmorphONE/DILAUDID 1 MG/ML INJ IVP PRN (14:12)
[2017-10-20] MEDS ORDERED: ACETAMINOPHEN 500 MG TAB PO PRN (14:12)
[2017-10-20] MEDS ORDERED: fentaNYL 100 MCG/2 ML INJ IVP PRN (14:12)
[2017-10-20] MEDS ORDERED: OXYCODONE/APAP 5/325 TAB PO PRN (14:12)
[2017-10-20] MEDS ORDERED: NALOXONE HCL 0.4 MG/ML INJ IVP PRN (14:12)
[2017-10-20] MEDS ORDERED: HYDROCODONE/APAP 5/325 TAB PO PRN (14:12)
--- NOTE | 2017-10-20 14:13 | POSTANESTH ---
Post Anesthetic Evaluation Cardiovascular Status: Similar to Pre-Op Cond Respiratory Status: Normal, Stable, Similar to Pre-op Cond. Level of Consciousness/Mental Status: Can Participate in Eval, Alert and Oriented Pain Control: Adequate, Prn Tx Ordered Nausea/Vomiting Control: Adequate, Prn Tx Ordered Complications Possibly Related to Anesthesia: None Noted
[2017-10-20] MEDS: ACETAMINOPHEN 325 MG TAB PO SCH (18:12)
[2017-10-20] MEDS: ceFAZolin 2 GM/SWFI 2 GM/20 ML SYR IVP SCH (20:39)
[2017-10-20] MEDS: SENNOSIDES/DOCUSATE SODIUM TAB PO SCH (20:44)
[2017-10-21] MEDS: ACETAMINOPHEN 325 MG TAB PO SCH ×3 (00:15→12:13)
[2017-10-21 04:49] VITALS: RESP 16
[2017-10-21] MEDS: ceFAZolin 2 GM/SWFI 2 GM/20 ML SYR IVP SCH (05:03)
[2017-10-21] MEDS: SENNOSIDES/DOCUSATE SODIUM TAB PO SCH (08:31)
[2017-10-21] MEDS ORDERED: FAMOTIDINE 20 MG TAB PO SCH (09:00)
[2017-10-21] MEDS ORDERED: RIVAROXABAN 10 MG TAB PO SCH (09:00)
[2017-10-21] MEDS ORDERED: LEVOTHYROXINE 75 MCG TAB PO SCH (09:00)
--- NOTE | 2017-10-21 11:07 | SOAPPROG ---
SOAP Progress Note Assessment/Plan: Assessment: Patient is doing well POD 1 s/p L TKA Pain management: pain is well controlled on oral pain meds. VTE ppx: recommend resuming xarelto, cont BYRON and SCDs D/c planning: d/c to home today pending release from PT Elevated Cr: Cr 1.5 High in 09/2017, but today 1.0. Patient believes it was elevated due to dehydration. Recommend that he discuss further with PCP prior ot taking celebrex. Reassuring that it is normal this morning though. Plan: 10/21/17 11:04 10/21/17 11:07 Subjective: Erickson is doing well today, denies SOB, chest pain and N/V. Objective: Vital Signs Temp Pulse Resp BP Pulse Ox 36.6 C 56 L 16 132/72 H 90 L 10/21/17 08:00 10/21/17 08:00 10/21/17 08:00 10/21/17 08:00 10/21/17 08:00 Laboratory Results 10/21/17 05:23 10/21/17 05:23 10/20/17 10/21/17 10/22/17 05:59 05:59 05:59 Intake Total 2000 Output Total 3700 Balance -1700 LLE; incision dressing is clean and dry, NVI, +pf/df ICD10 Worksheet Patient Problems: Problems Problem Status Onset Primary localized osteoarthritis of left knee Acute Bradycardia Acute Syncope Acute
[2017-10-21 12:07] VITALS: BP 138/78; PULSE 54; TEMP 98.5; O2SAT 92
--- NOTE | 2017-10-21 15:16 | GDS ---
[f rep st] DISCHARGE SUMMARY ADMISSION DIAGNOSIS: Left knee osteoarthritis. DISCHARGE DIAGNOSIS: Left knee osteoarthritis. PROCEDURE: Left total knee arthroplasty. VTE PROPHYLAXIS: Recommend patient resume Xarelto. BRIEF DESCRIPTION OF HOSPITAL STAY: Patient was admitted for an elective joint arthroplasty. The pa tient tolerated the procedure well and has passed physical therapy. The patient was given appropriat e antibiotic prophylaxis and venous thromboembolism prophylaxis. The patient's pain was well control led on oral pain medication, patient was holding down food, and had urinated. Decision was made to d ischarge the patient. The patient was given post-operative prescriptions pre-operatively. PLAN: To follow up as scheduled in Dr. Parker's office November 11 at 11:15. /[id number]/MODL
--- NOTE | 2017-10-21 19:53 | GOP ---
[f rep st] OPERATIVE REPORT DATE OF OPERATION: 10/20/2017 SURGEON: Georges Parker MD PAD CUTTER: KARL Horton. ANESTHESIA: Spinal. PREOPERATIVE DIAGNOSIS: Left knee osteoarthritis. POSTOPERATIVE DIAGNOSIS: Left knee osteoarthritis. PROCEDURE PERFORMED: Left total knee arthroplasty. FINDINGS: INDICATIONS: The patient is a 77-year-old male with severe and progressive pain and deformity of the left knee unresponsive to conservative care. Risks and benefits of the surgical intervention were e xplained in detail. DESCRIPTION OF PROCEDURE: The patient was brought to the operative room and placed on the table in t he supine position. Spinal anesthesia was induced without difficulty. A pneumatic tourniquet was ap plied about the left proximal thigh, and the leg was prepped and draped in a sterile fashion. The le g grubbs was applied. After exsanguination by elevation the tourniquet was inflated to 250 mm of licha cury. Incision was made anterior medial from the tibial tuberosity to a point 2 cm proximal to the superior pole of the patella. Medial parapatellar arthrotomy was carried out from the superior pole of the p atella and posteriorly in line with the fibers of the Type 2 VMO. The medial collateral ligament was elevated and the infrapatellar fat pad was resected. The patella was everted and the articular surface was excised. A 38 mm patellar button was placed. T he distal femoral guide hole was drilled and the 6-degree alignment marcus was placed. A 10 mm distal f emoral cut was made without difficulty. Attention was turned to the tibia and a standard 6 mm cut based on the medial tibial condyle was perf ormed. The tibial articular surface was excised without difficulty. Attention was turned back to the femur and a size 6 Triathlon femoral cutting block was positioned. Anterior, posterior, and chamfer cuts were made, followed by the intercondylar box cut. The knee was extended and the remnants of the medial and lateral meniscus were excised. The posterio r capsule was injected with ropivacaine, epinephrine and Toradol. A size 6 MIS mini-keel tibial tray was positioned. Trial reduction was then carried out. There was excellent range of motion, alignme nt, and stability using the 13 mm polyethylene. All trials were then removed. The joint was thoroughly irrigated and carefully dried. Two packages of cement and 2 grams of vancomycin were mixed in the vacuum mixer and placed on the fixation surface s of all surfaces of the components. The components were implanted and all excess cement was thoroug hly removed. The permanent 13 mm polyethylene was placed without difficulty. The tourniquet was deflated and all bleeders were coagulated. The wound was thoroughly irrigated and closed using interrupted sutures of 2-0 Vicryl for the joint capsule. The subcu was closed with 3-0 Vicryl and the skin with 4-0 Monocryl. Dermabond and Steri-Strips were applied followed by a compre ssive dressing. The patient was then moved from the operating room to the recovery room in good cond ition, having tolerated the procedure well. Estimated blood loss 30 cc. PATHOLOGY: Severe lateral and patellofemoral osteoarthritis. /[id number]/MODL
== END 2017-10-21 13:51 | disposition home or self-care (01) ==
LOC: F3N 10:04
PROVIDERS: ADMIT Orthopaedic Surgery; ATTEND Orthopaedic Surgery
PROC: 0SRD0J9 Replacement of Left Knee Joint with Synthetic Substitute, Cemented, Open Approach (ICD-10-PCS; principal; 2017-10-20 12:15)
DX: M17.12 Unilateral primary osteoarthritis, left knee (principal); E86.0 Dehydration; I48.91 Unspecified atrial fibrillation; G47.33 Obstructive sleep apnea (adult) (pediatric); Z86.718 Personal history of other venous thrombosis and embolism; Z86.711 Personal history of pulmonary embolism; Z95.0 Presence of cardiac pacemaker
CPT/HCPCS: 27447; 73560; 88311; 97116; 97161; 97165; C1776; G8978; G8979; G8980; G8987; G8988; G8989; J0171; J0690; J1100; J2001; J2250; J2704

== ENCOUNTER 2017-10-27 23:06 | Emergency (ER) | payer OTHER ==
[2017-10-27 23:18] VITALS: TEMP 98.6
--- NOTE | 2017-10-27 23:18 | EDPHY ---
H & P Time Seen by Provider: 10/27/17 23:18 HPI/ROS: HPI CHIEF COMPLAINT: Possible DVT. Left leg swelling HISTORY OF PRESENT ILLNESS: Patient very pleasant 77-year-old male, suffers from osteoarthritis of his knees, he just recently had a left total knee done on 10/20. Discharge 10/21. He has a history of DVTs on Xarelto. Presents emergency room worsening left leg swelling. Concern for DVT. Denies any significant pain or fever. No drainage. He states otherwise he has been doing well. Patient denies chest pain or shortness of breath Past Medical History: History of DVT, recent left total knee by Dr. Delvin Parker. Past Surgical History: Recent left knee surgery. Social History: Denies drugs alcohol tobacco. Family History: Noncontributory ROS REVIEW OF SYSTEMS: A comprehensive 10 point review of systems is otherwise negative aside from elements mentioned in the history of present illness. Exam Constitutional appears well nontoxic triage nursing summary reviewed, vital signs reviewed, awake/alert. Eyes normal conjunctivae and sclera, EOMI, PERRLA. HENT normal inspection, atraumatic, moist mucus membranes, no epistaxis, neck supple/ no meningismus, no raccoon eyes. Respiratory clear to auscultation bilaterally, normal breath sounds, no respiratory distress, no wheezing. Cardiovascular rate normal, regular rhythm, no murmur, no edema, distal pulses normal. Gastrointestinal soft, non-tender, no rebound, no guarding, normal bowel sounds, no distension, no pulsatile mass. Genitourinary no CVA tenderness. Musculoskeletal left lower extremity: Incision appears clean, dry and intact, dressing in place, mild erythema but no significant crepitus, no significant edema on exam, no significant pain on exam, distally neurovascular intact good distal pulse. Good cap refill. no midline vertebral tenderness, full range of motion, no calf swelling, no tenderness of extremities, no meningismus, good pulses, neurovascularly intact. Skin pink, warm, & dry, no rash, skin atraumatic. Neurologic awake, alert and oriented x 3, AAOx3, moves all 4 extremities equally, motor intact, sensory intact, CN II-XII intact, normal cerebellar, normal vision, normal speech. Psychiatric normal mood/affect. Heme/Lymph/Immune no lymphadenopathy. Differential Diagnosis: Includes but is not limited to in a particular order normal postoperative pain, normal postoperative swelling, possible DVT Medical Decision Making: Plan for this patient Doppler of the left lower extremity rule out DVT. Re-evaluation: 2328: Spoke with Kasie Arreola PA for Ortho, spoke with him, he is on-call for Ortho. Sent patient in. Spoke with him to rule out DVT. He did try to Call Dr. Parker multiple times, but unable to get a hold of him. Ultrasound of left lower extremity does not show evidence of DVT. Called to me by Dr. Rojas. 0140: Obtain CBC and chemistry. He does not have an elevated white count. He has no fever here. His left leg is swollen and erythematous and warm without any crepitus. This most likely postoperative inflammatory change. Recommend cool compresses. and close follow-up with Dr. Parker. 0159: Lab work is reviewed and normal. No elevated CBC. No left shift. Do recommend he follows up with Orthopedics tomorrow. 0204AM: Multiple attempts were made to contact Dr. Delvin Parker. Unable to do so. Called the answering service multiple times. Instructed patient to follow up with him and cause office to 1st thing tomorrow morning. And return emergency room if there is worsening symptoms includes worsening redness, pain, swelling. Questions or concerns. Blood work and ultrasound report provided to the patient. - Medical/Surgical History Hx Asthma: No Hx Chronic Respiratory Disease: No Hx Diabetes: No Hx Cardiac Disease: Yes Hx Renal Disease: No Hx Cirrhosis: No Hx Alcoholism: No Hx HIV/AIDS: No Hx Splenectomy or Spleen Trauma: No Other PMH: HX: PE'S & DVTs, HYPOTHYROID, coronary artery disease, history of nonsustained ventricular tachycardia, history of paroxysmal atrial fibrillation , osteoarthritis knee, macular degeneration R eye - Social History Smoking Status: Never smoked Constitutional: Initial Vital Signs Temperature (C) 37.0 C 10/27/17 23:10 Heart Rate 66 10/27/17 23:10 Respiratory Rate 18 10/27/17 23:10 Blood Pressure 141/83 H 10/27/17 23:10 O2 Sat (%) 95 10/27/17 23:10 O2 Delivery Mode Room Air Allergies/Adverse Reactions: No Known Allergies Allergy (Verified 10/27/17 23:19) Home Medications: Medication Instructions Recorded Levothyroxine [Synthroid 75 mcg 75 mcg PO DAILY06 02/16/14 (*)] Rivaroxaban [Xarelto 10mg (*)] 20 mg PO HS 02/16/14 Herbals/Supplements -Info Only 1 ea PO DAILY 01/05/17 Ascorbic Acid [Vitamin C 500 mg 1,000 mg PO DAILY 08/11/17 (*)] Cholecalciferol Vit D3 [Vitamin D3 5,000 units PO DAILY 08/11/17 (*)] Acetaminophen [Tylenol 325mg (*)] 650 mg PO Q6 PRN tab 08/12/17 celeCOXIB [Celecoxib] 200 mg PO DAILY 10/20/17 oxyCODONE HCL [Oxycodone HCl] 5 - 10 mg PO Q6H PRN 10/20/17 Acetaminophen [Tylenol 325mg (*)] 650 mg PO Q6HRS tab 10/21/17 Polyethylene Glycol 3350 [Miralax 17 gm PO DAILY PRN pkt 10/21/17 17 gm (*)] Sennosides/Docusate Sodium 1 - 2 tab PO BID tab 10/21/17 [Senokot-S] oxyCODONE IR [Oxycodone Ir (*)] 5 - 10 mg PO Q3HRS PRN tab 10/21/17 Medical Decision Making - Diagnostics Imaging Results: Imaging Impressions Extremity Venous Study 10/27/17 23:22 Impression: Negative. No deep venous thrombosis or fluid collection. Findings discussed with Emergency Department physician, Suhas Scott MD at 10/28/2017 0:17. - Data Points Laboratory Results: Laboratory Results 10/28/17 01:01 10/28/17 01:01 10/28/17 10/28/17 01:01 01:01 WBC 8.96 10^3/uL 10^3/uL (3.80-9.50) RBC 3.67 10^6/uL L 10^6/uL (4.40-6.38) Hgb 12.4 g/dL L g/dL (13.7-17.5) Hct 36.0 % L % (40.0-51.0) MCV 98.1 fL fL (81.5-99.8) MCH 33.8 pg pg (27.9-34.1) MCHC 34.4 g/dL g/dL (32.4-36.7) RDW 13.4 % % (11.5-15.2) Plt Count 259 10^3/uL 10^3/uL (150-400) MPV 10.3 fL fL (8.7-11.7) Neut % (Auto) 68.0 % % (39.3-74.2) Lymph % (Auto) 15.6 % % (15.0-45.0) [place] % (Auto) 13.4 % H % (4.5-13.0) Eos % (Auto) 1.3 % % (0.6-7.6) Baso % (Auto) 0.7 % % (0.3-1.7) Nucleat RBC Rel Count 0.0 % % (0.0-0.2) Absolute Neuts (auto) 6.09 10^3/uL 10^3/uL (1.70-6.50) Absolute Lymphs (auto) 1.40 10^3/uL 10^3/uL (1.00-3.00) Absolute Monos (auto) 1.20 10^3/uL H 10^3/uL (0.30-0.80) Absolute Eos (auto) 0.12 10^3/uL 10^3/uL (0.03-0.40) Absolute Basos (auto) 0.06 10^3/uL 10^3/uL (0.02-0.10) Absolute Nucleated RBC 0.00 10^3/uL 10^3/uL (0-0.01) Immature Gran % 1.0 % % (0.0-1.1) Immature Gran # 0.09 10^3/uL 10^3/uL (0.00-0.10) Sodium 142 mEq/L mEq/L (135-145) Potassium 4.5 mEq/L mEq/L (3.5-5.2) Chloride 105 mEq/L mEq/L (97-110) Carbon Dioxide 26 mEq/l mEq/l (22-31) Anion Gap 11 mEq/L mEq/L (8-16) BUN 29 mg/dL H mg/dL (7-23) Creatinine 1.0 mg/dL mg/dL (0.7-1.3) Estimated GFR > 60 Glucose 104 mg/dL H mg/dL (70-100) Calcium 9.2 mg/dL mg/dL (8.5-10.4) Medications Given: Discontinued Medications Acetaminophen (Tylenol) 1,000 mg PO EDNOW ONE Stop: 10/28/17 01:06 Last Admin: 10/28/17 01:07 Dose: 1,000 mg Departure - Departure Disposition: Home, Routine, Self-Care Clinical Impression: Leg pain Qualifiers: Laterality: left Qualified Code(s): M79.605 - Pain in left leg Condition: Good Instructions: Knee Pain (ED), Arthralgia (ED), Leg Pain (ED) Additional Instructions: 1. Make sure to ice her leg. 2. Follow up with Dr. Delvin Parker tomorrow. Or his office. 3. Continue your Xarelto. 4. There was no DVT seen on her ultrasound. Referrals: BETITO MENDEZ MD [Other] - As per Instructions Rk Parker MD [Medical Doctor] - As per Instructions Aysha Parker PA [Physician Press Service Reader] - As per Instructions
[2017-10-28] MEDS ORDERED: ACETAMINOPHEN 500 MG TAB ONE (01:03)
[2017-10-28] MEDS ORDERED: ACETAMINOPHEN 500 MG TAB PO ONE (01:05)
[2017-10-28 01:38] LABS: PLATELET COUNT 259 10^3/uL (150-400)
[2017-10-28 02:20] VITALS: BP 132/72; PULSE 67; RESP 16; O2SAT 89
== END 2017-10-28 02:19 | disposition home or self-care (01) ==
DX: M79.605 Pain in left leg (principal); I25.10 Atherosclerotic heart disease of native coronary artery without angina pectoris

== ENCOUNTER 2017-12-07 06:05 | Emergency (ER) | payer OTHER ==
[2017-12-07 06:14] VITALS: BP 125/79
[2017-12-07] MEDS ORDERED: fentaNYL 100 MCG/2 ML INJ IM ONE (06:28)
[2017-12-07] MEDS ORDERED: fentaNYL 100 MCG/2 ML INJ ONE (06:29)
--- NOTE | 2017-12-07 06:39 | EDPHY ---
H & P Stated Complaint: constipation s/p knee surgery Time Seen by Provider: 12/07/17 06:16 HPI/ROS: HPI The patient presents with constipation which has been present for the last 3 days. He is on opiate pain medications over the last several months and is status post a knee replacement. He actually stopped using his opiate pain medication about 3 days ago. However, when he has tried to have a bowel movement just a small volume comes out. His last bowel movement was yesterday and there was some blood involved. He does have a history of hemorrhoids and he believes these were bleeding. As he has tried drinking prune juice at home without any improvement in his symptoms. He denies any abdominal pain though feels somewhat bloated. He has not had any nausea or vomiting. He does not have a prior history of constipation. REVIEW OF SYSTEMS Constitutional: No fever, no chills. Eyes: No discharge. ENT: No sore throat. Cardiovascular: No chest pain, no palpitations. Respiratory: No cough, no shortness of breath. Gastrointestinal: No abdominal pain, no vomiting. Genitourinary: No hematuria. Musculoskeletal: No back pain. Skin: No rashes. Neurological: No headache. PMHx: Status post TKA Soc Hx: Lives at home with his PHYSICAL General Appearance: Alert, no distress Eyes: Pupils equal and round no pallor or injection ENT, Mouth: Mucous membranes moist Respiratory: There are no retractions, lungs are clear to auscultation Cardiovascular: Regular rate and rhythm Gastrointestinal: Abdomen is soft and non-tender, no masses, bowel sounds normal Rectal: There is a 5 mm slightly erythematous hemorrhoid at 1 o'clock which is tender though not firm or bluish, there is a large amount of stool in the rectal vault which is firm and brown Neurological: A&O, moves all extremities Skin: Warm and dry, no rashes Musculoskeletal: Neck is supple non tender Extremities: symmetrical, full range of motion Psychiatric: Patient is oriented X 3, there is no agitation Source: Patient Exam Limitations: No limitations - Personal History Current Tetanus Diphtheria and Acellular Pertussis (TDAP): Yes - Medical/Surgical History Hx Asthma: No Hx Chronic Respiratory Disease: No Hx Diabetes: No Hx Cardiac Disease: Yes Hx Renal Disease: No Hx Cirrhosis: No Hx Alcoholism: No Hx HIV/AIDS: No Hx Splenectomy or Spleen Trauma: No Other PMH: HX: PE'S & DVTs, HYPOTHYROID, coronary artery disease, history of nonsustained ventricular tachycardia, history of paroxysmal atrial fibrillation , osteoarthritis knee, macular degeneration R eye - Social History Smoking Status: Never smoked Constitutional: Initial Vital Signs Temperature (C) 36.6 C 12/07/17 06:10 Heart Rate 75 12/07/17 06:10 Respiratory Rate 16 12/07/17 06:10 Blood Pressure 125/79 H 12/07/17 06:10 O2 Sat (%) 96 12/07/17 06:10 O2 Delivery Mode Room Air Allergies/Adverse Reactions: No Known Allergies Allergy (Verified 12/07/17 06:08) Home Medications: Medication Instructions Recorded Levothyroxine [Synthroid 75 mcg 75 mcg PO DAILY06 02/16/14 (*)] Rivaroxaban [Xarelto 10mg (*)] 20 mg PO HS 02/16/14 Herbals/Supplements -Info Only 1 ea PO DAILY 01/05/17 Ascorbic Acid [Vitamin C 500 mg 1,000 mg PO DAILY 08/11/17 (*)] Cholecalciferol Vit D3 [Vitamin D3 5,000 units PO DAILY 08/11/17 (*)] Acetaminophen [Tylenol 325mg (*)] 650 mg PO Q6 PRN tab 08/12/17 oxyCODONE HCL [Oxycodone HCl] 5 - 10 mg PO Q6H PRN 10/20/17 Polyethylene Glycol 3350 [Miralax 17 gm PO DAILY PRN pkt 10/21/17 17 gm (*)] Sennosides/Docusate Sodium 1 - 2 tab PO BID tab 10/21/17 [Senokot-S] Hydrocortisone Acetate [Anucort-Hc] 25 mg RC DAILY PRN #20 supp.rect 12/07/17 Medical Decision Making Differential Diagnosis: This is a 77-year-old man who has been on opiate pain medication who presents with constipation for the last 3 days complicated by hemorrhoids. On exam, he has a large amount of stool in the rectal vault, his abdominal exam is benign, he does have slightly edematous hemorrhoids. In the emergency department, he received fentanyl 100 mcg IM. I then performed fecal disimpaction with large volume of stool out. He was able to have a bowel movement. I will discharge him home with a bottle of magnesium citrate and have discussed a bowel regimen for him. I will treat his hemorrhoids with steroid suppositories, however will hold off on treating this until his constipation has resolved. He is happy with this plan. I have considered SBO is the cause of his symptoms, however given the large amount of stool in the rectal vault, lack of vomiting, lack of abdominal pain, I will not perform CT scan. - Data Points Medications Given: Discontinued Medications Fentanyl (Sublimaze) 100 mcg IM EDNOW ONE Stop: 12/07/17 06:29 Last Admin: 12/07/17 06:31 Dose: 100 mcg Departure - Departure Disposition: Home, Routine, Self-Care Clinical Impression: Fecal impaction, Hemorrhoids, external Constipation Qualifiers: Constipation type: unspecified constipation type Qualified Code(s): K59.00 - Constipation, unspecified Condition: Good Instructions: Constipation (ED), Hemorrhoids (ED) Additional Instructions: Take the bottle of magnesium citrate as soon as you get home. If it is not effective you can take 1 more dose of it today. Please begin taking MiraLax 17 g once a day starting as soon as tonight. You should take this for about 1 week. You can also try Senokot or other laxatives you have at home. I have given you a prescription suppository for the hemorrhoids. You can start taking this tomorrow or once her bowels are moving well. You can return to the emergency department if your worse in any way. Please follow-up with your primary care doctor for hemorrhoids continued to be painful. Referrals: BETITO GONZALEZ [Primary Care Provider] - As per Instructions Prescriptions: Hydrocortisone Acetate [Anucort-Hc] 25 mg RC DAILY PRN #20 supp.rect PRN Reason: for hemorrhoids
[2017-12-07] MEDS ORDERED: MAGNESIUM CITRATE 300 ML BOTTLE PO ONE (06:49)
== END 2017-12-07 07:01 | disposition home or self-care (01) ==
DX: K59.00 Constipation, unspecified (principal); K64.4 Residual hemorrhoidal skin tags; I25.10 Atherosclerotic heart disease of native coronary artery without angina pectoris
CPT/HCPCS: 96372; 99284; J3010